=== PATIENT | male | born 1950 | race Caucasian/White ===

== ENCOUNTER 2023-05-23 08:40 | Emergency (ER) | payer MEDICARE, OTHER ==
--- NOTE | 2023-05-23 09:27 | ED Physician Documentation ---
PD HPI SKIN - Stated complaint Stated Complaint: BEE STING - Chief complaint Chief Complaint: Allergic Rx - History obtained from History obtained from: Patient - History of Present Illness Timing - onset: How many minutes ago (45 minutes RHIT), Today Timing - details: Abrupt onset, Still present (he states he happened upon a bee nest while yardworking. Stung several times in both hands, right lower eyelid, back of head. Swelling and markedly tender in sting areas. No generalized symptoms. Took Benadryl and Tylenol RHIT.) Location: Scalp, Face, RUE, LUE Quality / character: Painful, Discolored (red), Swelling Improved by: Benadryl Associated symptoms: No: Fever, Myalgias, N/V/D Contributing factors: Insect bite /sting (multiple stings in affected areas.) Similar symptoms before: Has not had sx before Review of Systems Constitutional: denies: Fever, Chills, Myalgias Nose: denies: Rhinorrhea / runny nose, Congestion Throat: denies: Sore throat Cardiac: denies: Chest pain / pressure Respiratory: denies: Dyspnea, Cough, Wheezing GI: denies: Nausea, Vomiting Neurologic: denies: Near syncope, Altered mental status, Headache PD PAST MEDICAL HISTORY - Present Medications Home Medications: Ambulatory Orders Medication Instructions Recorded Confirmed dexAMETHasone [Decadron] 4 mg PO DAILY #5 tablet 05/23/23 - Allergies Allergies/Adverse Reactions: Allergies Allergy/AdvReac Type Severity Reaction Status Date / Time morphine Allergy Unknown Verified 05/23/23 08:54 Penicillins AdvReac Rash Verified 05/23/23 08:54 PD ED PE NORMAL - Vitals Vital signs reviewed: Yes - General General: Alert and oriented X 3, Well developed/nourished, Other (appears uncomfrtable mostly on hands and right lower eyelid. ) - HEENT HEENT: PERRL, EOMI (right lower eyelid pain with eye movement but says it is of the soft tissue below eye and not conjunctival nor retrobulbar pain. No diplopia. ), Pharynx benign - Neck Neck: Supple, no meningeal sign, No adenopathy - Cardiac Cardiac: RRR, No murmur - Respiratory Respiratory: Clear bilaterally - Abdomen Abdomen: Soft, Non tender - Derm Derm: Normal color, Warm and dry, Other (local areas of swelling and redness, tender dorsal both hands, right lower eyelid and occpital scalp. ) Results - Vitals Vitals: Vital Signs - 24 hr 05/23/23 05/23/23 05/23/23 08:50 10:16 11:00 Temperature 36.8 C Heart Rate 75 52 L 75 Respiratory 20 15 15 Rate Blood Pressure 168/108 H 136/86 H 145/87 H O2 Saturation 98 99 99 Oxygen O2 Source Room air PD Medical Decision Making - ED course Complexity details: considered differential (stung multiple times with local reaction at each. No general symptoms. No rash/redness in areas not stung. No dyspnea, oral swelling. ), d/w patient, d/w family (spouse) Departure - Departure Disposition: 01 Home, Self Care Clinical Impression: Bee sting reaction Condition: Stable Record reviewed to determine appropriate education?: Yes Instructions: ED Bite Insect Prescriptions: dexAMETHasone [Decadron] 4 mg PO DAILY #5 tablet Comments: You are having localized reaction to the bee stings that, even though significant symptoms of swelling and pain, are still local to the areas of the bee stings. As such it does not sound like an anaphylactic type reaction and I do not see the necessity for carrying or having epinephrine injector and kits etc. For the current symptoms, continue with some ice or cool towels to the area for swelling. Antihistamine such as cetirizine and Benadryl can help. I would suggest some cetirizine twice daily for the next several days. A steroid anti-inflammatory can also be fairly helpful in decreasing some of the nonhistamine related components to the bee sting. I wrote a prescription for that and you were given an oral dose here today to be good into tomorrow. Tylenol ibuprofen as needed for pains. Forms: PCP List Discharge Date/Time: 05/23/23 11:00
[2023-05-23] MEDS ORDERED: KETOROLAC 30 MG/ML VIAL IM STA (09:47)
[2023-05-23] MEDS ORDERED: dexAMETHasone 4 MG TABLET PO STA (09:47)
[2023-05-23] MEDS ORDERED: CETIRIZINE 10 MG TABLET PO STA (09:48)
[2023-05-23] MEDS ORDERED: diphenhydrAMINE INJ 50 MG/ML VIAL IM STA (09:48)
[2023-05-23 10:22] VITALS: O2SAT 99
[2023-05-23 11:03] VITALS: BP 145/87
== END 2023-05-23 11:00 | disposition home or self-care (01) ==
LOC: ED 08:40
DX: T63.441A Toxic effect of venom of bees, accidental (unintentional), initial encounter (principal)
CPT/HCPCS: 96372; 99283; A9270; J1200; J8540